=== PATIENT | female | born 1950 | race Two or more races ===

== ENCOUNTER 2023-07-26 09:01 | Outpatient (REF) | payer OTHER, SELFPAY ==
[2023-07-26 15:16] LABS: Cholesterol 218 mg/dL (<200); HDL Cholesterol 48 mg/dL (>40); LDL Cholesterol Calculated 146 mg/dL (<100); Triglycerides 123 mg/dL (<150)
[2023-07-26 16:57] LABS: Parathyroid Hormone Intact 165.5 pg/mL (8.7-77.1)
[2023-07-30 01:03] LABS: VITAMIN D (1,25 OH) D3 78 pg/mL; Vit D (1,25-Dihydroxy) Total 105 pg/mL (18-72); Vitamin D (1,25 OH) D2 27 pg/mL
== END 2023-07-26 09:02 | disposition home or self-care (01) ==
LOC: HO.CHCLDS 09:01
PROVIDERS: Visit Provider Family Medicine
DX: E78.5 Hyperlipidemia, unspecified (principal); E21.3 Hyperparathyroidism, unspecified
CPT/HCPCS: 36415; 80061; 82652; 83970

== ENCOUNTER 2023-11-15 08:33 | Outpatient (REF) | payer OTHER, SELFPAY ==
[2023-11-15 14:07] LABS: Cholesterol 237 mg/dL (<200); HDL Cholesterol 55 mg/dL (>40); LDL Cholesterol Calculated 162 mg/dL (<100); Triglycerides 100 mg/dL (<150)
== END 2023-11-15 08:34 | disposition home or self-care (01) ==
LOC: HO.CHCLDS 08:33
PROVIDERS: Visit Provider Family Medicine
DX: E78.5 Hyperlipidemia, unspecified (principal)
CPT/HCPCS: 36415; 80061

== ENCOUNTER 2024-06-29 08:37 | Outpatient (REF) | payer OTHER, SELFPAY ==
[2024-06-29 14:33] LABS: Cholesterol 233 mg/dL (<200); HDL Cholesterol 55 mg/dL (>40); LDL Cholesterol Calculated 154 mg/dL (<100); Triglycerides 122 mg/dL (<150)
== END 2024-06-29 08:38 | disposition home or self-care (01) ==
LOC: HO.CHCLDS 08:37
PROVIDERS: Visit Provider Family Medicine
DX: E78.5 Hyperlipidemia, unspecified (principal)
CPT/HCPCS: 36415; 80061

== ENCOUNTER 2025-02-13 08:25 | Outpatient (REF) | payer OTHER, SELFPAY ==
--- OUTSIDE RECORDS SUMMARY | 2025-02-13 08:29 | XMS_ITS | Continuity of Care Document ---
Author Organization [facility] [address] [place] [address] Phone [phone] Social History Type Date Description Comments Sex Female Sex Unknown Medical Devices Description No Information Available Encounters Description No Information Available Assessments Description No Information Available Plan of Treatment No Information Available Functional Status Description No Information Available Mental Status Description No Information Available Referrals Description No Information Available
--- OUTSIDE RECORDS SUMMARY | 2025-02-13 08:29 | XMS_ITS | Encounter Summary ---
Author Organization [employer] Address [address] [facility] 7t [place] [address] Care Team Providers Care Preschool Principal Name Role Phone Jocelin Harvey MD Primary Care Provider [phone] Reason for Visit * Reason Onset Date Comments Med Refill 11/03/2023 Encounter Details Date Type Department Care Team ([facility] st Contact Info) Description 11/03/2023 Telephone [facility] MEDICINE [address] [place] [address] Jocelin Harvey MD [address] [place] [address] Med Refill Social History Tobacco Use Types Packs/Day Years Used Date Smoking Tobacco: Never Passive Smoke Exposure: Never Smokeless Tobacco: Never Alcohol Use Standard Drinks/Week Comments Never 0 (1 standard drink = 0.6 oz pur e alcohol) Depression Answer Date Recorded Patient Health Questionnaire-9 Score 0 01/14/2023 Housing Stability Answer Date Recorded What is your housing situation today? I have kenna broderick 05/30/[address] you li ve. Do you have problems with any of the following? None of the above 05/30/2023 Food Insecurity Answer Date Recorded Within the past 12 months, y ou worried that your food would run out before you got money to buy more: Never True 05/30/2023 Within the past 12 months,th e food you bought just didn't last and you didn't have enough money to get more: Never True Transportation Answer Date Recorded In the past 12 months, has l ack of transportation kept you from medical appts, meetings, work or from getting things needed for daily living? No 05/30/2023 Utilities Answer Date Recorded In the past 12 months, has t he electric, gas, oil or water company threatened to shut off services in your home? No 05/30/2023 Depression Answer Date Recorded Patient Health Questionnaire-2 Score 0 01/14/2023 Comments Unknown Sex and Gender Information Value Date Recorded Sex Assigned at Female 06/14/2022 10:23 AM EDT Legal Sex Female 10:23 AM EDT Gender Identity Choose not to disclose 10:23 AM EDT Sexual Orientation Straight 09/03/2022 1: 46 PM EST documented as of this encounter Miscellaneous Notes * Telephone Encounter - Evan Abad - 11/03/2023 2:34 PM EDT TC from pt requesting medication refill. Medications needing refill : zolpidem (Ambien) 10 MG tablet To be sent to: [facility]/pharmacy #[id number] - [place], [place] - [address] [place], [place] [address]Mercedes [facility] [place] [facility] [facility]ITALCole documented in this encounter Plan of Treatment Upcoming Encounters Date Type Department Care Team (Late st Contact Info) Description 03/12/2025 11:00 AM EDT Clinical Support [facility] MED & PEDS [address] [place] [address] Kristyn Thomas, RN [address] [place] [address] documented as of this encounter Visit Diagnoses Not on filedocumented in this encounter Additional Health Concerns Assessment Noted Time PHQ-9 Depression Total Score: 0 01/15/20 2:08 PM EDT documented as of this encounter Care Teams Preschool Principal Relationship Specialty Start Date End Date Jocelin Harvey MD [address] [place] [address] PCP - General Family Medicine 08/27/22 documented as of this encounter
--- OUTSIDE RECORDS SUMMARY | 2025-02-13 08:29 | XMS_ITS | Clinical Summary ---
Author Organization [facility] Address [address] [place] [address] Care Team Providers Care Boat Buffer Plastic Name Role Phone Jocelin Harvey MD Primary Care Provider [phone] Surgical History Surgery Date Site/Laterality Comments HYSTERECTOMY PROCEDURE: HISTORICAL HYSTERECTOMY; COMMENT: has ovaries ROTATOR CUFF REPAIR Right PROCEDURE: HISTORICAL ROTATOR CUFF REPAIR HEMORRHOID SURGERY PROCEDURE: HISTORICAL HEMMORROIDECTOMY Medical History Medical History Date Comments Dyslipidemia DX:Dyslipidemia HTN (hypertension) DX:HTN (hyper tension) Seasonal allergies DX:Seasonal a llergies Migraine DX:Migraine 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 DX:Right knee DJ D Insomnia 07/03/2014 DX:Insomnia Lumbar spondylosis DX:Lumbar spo ndylosis Post herpetic neuralgia 10/28/2016 DX:Post herpetic neuralgia Leukopenia 03/11/2017 DX:Leukopenia Prediabetes 02/13/2019 DX:Prediabetes Serum calcium elevated DX:Serum calcium elevated Family History Medical History Relation Name Comments Coronary artery disease Father diab etes Breast cancer Maternal Grandmother Coronary artery disease Mother diab etes Relation Name Status Comments Father Maternal Grandmother Mother Social History Tobacco Use Types Packs/Day Years Used Date Smoking Tobacco: Never Smokeless Tobacco: Never Alcohol Use Standard Drinks/Week Comments No 0 (1 standard drink = 0.6 oz pur e alcohol) Comments Unknown Sex and Gender Information Value Date Recorded Sex Assigned at Not on file Legal Sex Female 1:12 AM EST Gender Identity Not on file Sexual Orientation Not on file Obstetrics History Last Filed Vital Signs Vital Sign Reading Time Taken Comments Blood Pressure 108/64 05/26/2022 10:05 AM EDT Pulse 60 05/26/2022 10:05 AM EDT Temperature - - Respiratory Rate - - Oxygen Saturation - - Inhaled Oxygen Concentration - - Weight 96.8 kg (213 lb 6.4 oz) 05/26/2022 10:05 AM EDT Height 154.9 cm (5' 1 ) 05/26/2022 10:05 AM EDT Body Mass Index 40.32 05/26/2022 10:05 AM EDT Plan of Treatment Health Maintenance Due Date Last Done Comments Zoster Vaccines (1 of 2) 1969 RSV Immunization Adult Patients (1 - Risk 60-74 years 1-dose series) 2010 Cholesterol Screening (Lipid Panel) 07/24/2022 Colorectal Cancer Screening: Colonoscopy 07/24/2022 Falls Risk Assessment 07/24/2022 Hepatitis C Screening 07/24/2022 Social Influencers of Health Screening 07/24/2022 Hypertension/CHF/CAD Annual BMP Blood Test 07/25/2022 Pneumococcal Vaccine: 50+ Years (2 of 2 - PCV) 09/28/2022 09/28/2021 Depression Screening 01/15/2024 01/14/2023 COVID-19 Vaccine ( season) 2024 08/03/2021, 11/05/2020, 10/08/2020 Influenza Vaccine (#1) 2025 , 07/29/2021, 05/14/2020, Additional history exists DTaP,Tdap,and Td Vaccines (2 - Td or Tdap) 07/16/2025 07/16/2015 Breast Cancer Screening 03/15/2026 03/15/20 24, 02/03/2023, 01/29/2022, Additional history exists Osteoporosis Screening (Bone Density Screening) 04/23/2037 04/23/2022, 08/31/2019 HIB Vaccines Aged Out No longer eligi ble based on patient's age to complete this topic HPV Vaccines Aged Out No longer eligi ble based on patient's age to complete this topic Hepatitis A Vaccines Aged Out No long er eligible based on patient's age to complete this topic Hepatitis B Vaccines Aged Out No long er eligible based on patient's age to complete this topic IPV Vaccines Aged Out No longer eligi ble based on patient's age to complete this topic MMR Vaccines Aged Out No longer eligi ble based on patient's age to complete this topic Meningococcal ACWY Vaccine Aged Out N o longer eligible based on patient's age to complete this topic Meningococcal B Vaccine Aged Out No l onger eligible based on patient's age to complete this topic RSV Immunization Patients Under 20 months Aged Out No longer eligible based on patient's age to complete this topic Varicella Vaccines Aged Out No longer eligible based on patient's age to complete this topic Procedures Procedure Name Priority Date/Time Associated Diagnosis Comments MARINA SCREENING DIGITAL Routine 03/15/2024 1:05 PM EDT Encounter for screening mammogram for malignant neoplasm of breast DXA BONE DENSITY STUDY 1+ SITS AXIAL SKEL Routine 04/23/2022 11:08 AM EDT Hyperparathyroidism, unspecified ([facility] V24) from Last 3 Months or Most Recently Relevant to Health Maintenance Results * MARINA SCREENING DIGITAL (03/15/2024 1:05 PM EDT) Anatomical Region Laterality Modality Mammography 03/15/2024 10:4 4 AM EDT Narrative 03/15/2024 1:05 PM EDT [facility] Diagnostic Imaging Department [address] [place] [address] Patient: ARUN LARSON /Age/Sex: 1950 - 74 - F Unit#: [id number] [facility]Ordering [facility] Ordering Physician: JOCELIN HARVEY MD Marina Screening Digital - 03/15/24 - 1157 Report Status:Signed EXAM: Marina Screening Digital EXAM DATE AND TIME: 03/15/2024 11:58 AM HISTORY: Screening. Family history of breast carcinoma (maternal grandmother). COMPARISON: 02/02/23, 01/29/22, 12/03/20 TECHNIQUE: Bilateral digital breast tomosynthesis was performed in the CC and MLO projections. Computer aided detection with Siftit 3D 3.1 was employed. TISSUE DENSITY: b. There are scattered areas of fibroglandular density. FINDINGS: No suspicious masses, grouped microcalcifications, or areas of architectural distortion are seen. Vascular calcification is present. The skin is unremarkable. IMPRESSION: Stable mammographic appearance of the breasts. No evidence of malignancy is seen. A negative mammogram in the presence of a clinically suspicious palpable abnormality does not preclude the possibility of malignancy or alter the indications for biopsy. BI-RADS: Category 2: Benign RECOMMENDATION(S): 1: Routine screening mammogram BILATERAL in 1 year. Dictating Physician: SUZI JONES MD Electronically Signed by: SUZI JONES MD Dic Date/Time: 03/15/24 1304 Sign date/Time: 03/15/24 1305 Procedure Note Suzi Jones MD - 05/30/2024 [facility] Diagnostic Imaging Department [address] [place] [address] Patient: MARY JO LARSONGAIL /Age/Sex: 1950 - 74 - F Unit#: [id number] Location/Status: [facility] CLI Mnemonic/Ordering Site: [facility] Ordering Physician: JOCELIN HARVEY MD [facility] Screening Digital - 03/15/24 - 1157 Report Status:Signed EXAM: [facility] Screening Digital EXAM DATE AND TIME: 03/15/2024 11:58 AM HISTORY: Screening. Family history of breast carcinoma (maternalgrandmother). COMPARISON: 02/02/23, 01/29/22, 12/03/20 TECHNIQUE: Bilateral digital breast tomosynthesis was performed in the CCand MLO projections. Computer aided detection with Siftit 3D 3.1was employed. TISSUE DENSITY: b. There are scattered areas of fibroglandular density. FINDINGS: No suspicious masses, grouped microcalcifications, or areas ofarchitectural distortion are seen. Vascular calcification is present. The skin is unremarkable. IMPRESSION: Stable mammographic appearance of the breasts. No evidence of malignancyis seen. A negative mammogram in the presence of a clinically suspicious palpable abnormality does not preclude the possibility of malignancy or alter the indications for biopsy. BI-RADS: Category 2: Benign RECOMMENDATION(S): 1: Routine screening mammogram BILATERAL in 1 year. Dictating Physician: SUZI JONES MD Electronically Signed by: SUZI JONES MD Dic Date/Time: 03/15/24 1304 Sign date/Time: 03/15/24 1305 us Jocelin Harvey MD IMG BI PROCEDURES Final Resul t * DXA BONE DENSITY STUDY 1+ SITS AXIAL SKEL (04/23/2022 11:08 AM EDT) Anatomical Region Laterality Modality Bone Densitometr y 02/12/2022 10:4 0 AM EDT Narrative 04/23/2022 12:44 PM EDT BONE DENSITY (DEXA) Lumbar Spine T-score is -0.7. (SD relative to 20-29 y/o adult) Z-score is 1.5. (SD relative to age matched peers) This is considered normal by WHO criteria. Left Hip T-score is -0.1. Z-score is 1.5. This is considered normal by WHO criteria. Left Forearm T score is -1.7. Z score is 0.6. This is considered osteopenia. IMPRESSION: This patient is considered to have osteopenia by WHO criteria. The [facility] Department of Internal Medicine recommends using National Osteoporosis Foundation (NOF) guidelines in treatment decisions related to osteoporosis. NOF guidelines suggest considering treatment for postmenopausal women and men aged 50 or older presenting with the following: History of hip or vertebral fracture. T-score = -2.5 (DXA) at the femoral neck, total hip, or spine, after appropriate evaluation to exclude secondary causes. Low bone mass (T-score between -1.0 and -2.5 at the femoral neck or spine) AND a 10-year probability of a hip fracture = 3% OR a 10-year probability of a major osteoporosis-related fracture = 20% based on the [place]-adapted WHO algorithm Please note that all treatment decisions require clinical judgment and consideration of individual patient factors, including patient preferences, co-morbidities, previous drug use, risk factors not captured in the FRAX model (e.g., frailty, falls, vitamin D deficiency, increased bone turnover, interval significant decline in bone density) and possible under- or over-estimation of fracture risk by FRAX. Optional alternative screening schedule based on ileana Millard., [facility] September 02, 2011 for patients with osteopenia (based on hip BMD T-score) is as follows: * advanced osteopenia (T scores -2.00 to -2.49), BMD testing every year * moderate osteopenia (T scores -1.50 to -1.99), BMD testing every 5 years mild osteopenia or normal BMD (T scores -1.50 and higher), BMD testing every 15 years Procedure Note Rebeka Hernandez MD - 08/03/2022 BONE DENSITY (DEXA) Lumbar Spine T-score is -0.7. (SD relative to 20-29 y/o adult) Z-score is 1.5. (SD relative to age matched peers) This is considered normal by WHO criteria. Left Hip T-score is -0.1. Z-score is 1.5. This is considered normal by WHO criteria. Left Forearm T score is -1.7. Z score is 0.6. This is considered osteopenia. IMPRESSION: This patient is considered to have osteopenia by WHO criteria. The [facility] Department of Internal Medicine recommendsusing National Osteoporosis Foundation (NOF) guidelines in treatment decisions related toosteoporosis. NOF guidelines suggest considering treatment for postmenopausal women and menaged 50 or older presenting with the following: History of hip or vertebral fracture. T-score = -2.5 (DXA) at the femoral neck, total hip, or spine, afterappropriate evaluation to exclude secondary causes. Low bone mass (T-score between -1.0 and -2.5 at the femoral neck or spine)AND a 10-year probability of a hip fracture = 3% OR a 10-year probability of a majorosteoporosis-related fracture = 20% based on the [place]-adapted WHO algorithm Please note that all treatment decisions require clinical judgment andconsideration of individual patient factors, including patient preferences, co- morbidities,previous drug use, risk factors not captured in the FRAX model (e.g., frailty, falls, vitaminD deficiency, increased bone turnover, interval significant decline in bone density) andpossible under- or over-estimation of fracture risk by FRAX. Optional alternative screening schedule based on zunilda Millard al., NEJMJanuary 2011 for patients with osteopenia (based on hip BMD T-score) is as follows: * advanced osteopenia (T scores -2.00 to -2.49), BMD testing every year * moderate osteopenia (T scores -1.50 to -1.99), BMD testing every 5years mild osteopenia or normal BMD (T scores -1.50 and higher), BMD testingevery 15 years [facility] IMG DXA PROCEDURES Final Re sult from Last 3 Months or Most Recently Relevant to Health Maintenance Care Teams Boat Buffer Plastic Relationship Specialty Start Date End Date Jocelin Harvey MD [address] [facility] [address] PCP - General 11/12/22
[2025-02-13 14:59] LABS: Hematocrit 36.3 % (37.0-47.0); Hemoglobin 11.9 g/dl (12.0-16.0); Imm Gran Abs Auto 0.00 X10*3/uL (0.00-0.03); Imm Gran Pct Auto 0.0 % (0.0-0.4); Lymphocytes Absolute Auto 1.4 X10*3/uL (1.2-4.9); MANUAL DIFF FLAG SCAN; Mean Corpuscular HGB Conc 32.8 g/dl (31.0-35.0); Mean Corpuscular Hemoglobin 29.2 pg (27.0-33.0); Mean Corpuscular Volume 89.2 fL (80.0-98.0); NRBC Abs Auto 0.000 X10*3/uL (0.0-0.012); NRBC Pct Auto 0.0 /100WBC (0.0-0.2); Platelet Count 233 X10*3/uL (160-400); Red Blood Count 4.07 X10*6/uL (4.20-5.50); SCAN SMEAR FLAG 1; White Blood Count 2.9 X10*3/uL (4.8-10.8)
[2025-02-13 15:04] LABS: Hemoglobin A1C 136.8731 umol/L; Total Hemoglobin (HGBA1C) 3207.9816 umol/L
[2025-02-13 15:22] LABS: Alanine Aminotransferase 21 U/L (0-31); Albumin Level 4.1 g/dL (3.5-5.0); Alkaline Phosphatase 117 U/L (39-117); Anion Gap 10 (12-20); Aspartate Amino Transferase 38 U/L (5-31); Blood Urea Nitrogen 16 mg/dL (9-16); Calcium 9.9 mg/dL (8.4-10.2); Carbon Dioxide 25 mmol/L (22-29); Chloride 106 mmol/L (96-108); Cholesterol 214 mg/dL (<200); Estimated Glomerular Filt Rate > 60; HDL Cholesterol 47 mg/dL (>40); Iron 74 mcg/dL (30-160); Percent Iron Saturation 24 % (15-50); Potassium 4.4 mmol/L (3.3-5.1); Sodium 137 mmol/L (135-145); Total Iron Binding Capacity 308 mcg/dL (228-428); Total Protein 7.3 g/dL (6.5-8.0); Triglycerides 125 mg/dL (<150); Unsaturated Iron Binding 234 ug/dL
[2025-02-13 15:33] LABS: Ferritin 17 ng/mL (10-250)
[2025-02-13 15:34] LABS: Parathyroid Hormone Intact 189.0 pg/mL (8.7-77.1)
[2025-02-14 08:34] LABS: ~HepC Num1 0.08 S/CO (0.00-0.79); ~Hepatitis C Antibody Nonreactive (Nonreactive)
== END 2025-02-13 08:26 | disposition home or self-care (01) ==
LOC: HO.CHCLDS 08:25
PROVIDERS: Visit Provider Family Medicine
DX: E66.01 Morbid (severe) obesity due to excess calories (principal); E21.3 Hyperparathyroidism, unspecified; D64.9 Anemia, unspecified; E78.5 Hyperlipidemia, unspecified; Z13.9 Encounter for screening, unspecified
CPT/HCPCS: 36415; 80053; 80061; 82728; 83036; 83540; 83970; 84443; 85025; 86803

== ENCOUNTER 2025-02-25 13:51 | Outpatient (REF) | payer OTHER, SELFPAY ==
--- NOTE | ~2025-02-25 | XR_ITS ---
EXAMINATION: XR SHOULDER, LEFT CLINICAL INFORMATION: 74 yo F with left shoulder pain, + yergason, + speed, send to [facility] COMPARISON: None available. TECHNIQUE: AP external rotation, Grashey, scapular Y, and axillary views of the left shoulder. FINDINGS: Normal alignment. No fracture. Mild degenerative changes at the acromioclavicular joint. The glenohumeral joint space is preserved. No abnormal soft tissue calcifications. XR/XR shoulder LT min 2V IMPRESSION: Mild degenerative changes at the acromioclavicular joint. Electronically signed by: Lenin Jerome MD 02/25/2025 02:29 PM EDT
--- OUTSIDE RECORDS SUMMARY | 2025-02-25 15:14 | XMS_ITS | Encounter Summary ---
Author Organization [employer] Address [address] [facility] 7t [place] [address] Care Team Providers Care Cigar Packer And Picker Name Role Phone Jocelin Harvey MD Primary Care Provider [phone] Reason for Visit * Reason Onset Date Comments Med Refill 11/03/2023 Encounter Details Date Type Department Care Team ([facility] st Contact Info) Description 11/03/2023 Telephone [facility] MEDICINE [address] [place] [address] Jocelin Harvey MD [address] [place] [id number] Med Refill Social History Tobacco Use Types [...] 10 MG tablet To be sent to: [facility]/pharmacy #[id number] - [place], [place] - [address] [place], [place] [address]Mercedes AT [place] OF [place] MARTABANNER MD [facility] CENTERCole documented in this encounter Plan of Treatment Upcoming Encounters Date Type Department Care Team (Late st Contact Info) Description 03/12/2025 11:00 AM EDT Clinical Support [facility] CHC MED & PEDS [address] [place] [address] Kristyn Thomas, RN [address] [place] [address] documented as of this encounter Visit Diagnoses Not on filedocumented in this encounter Additional Health Concerns Assessment Noted Time PHQ-9 Depression Total Score: 0 01/15/20 2:08 PM EDT documented as of this encounter Care Teams Cigar Packer And Picker Relationship Specialty Start Date End Date Jocelin Harvey MD [address] [place] [address] PCP - General Family Medicine 08/27/22 documented as of this encounter
--- OUTSIDE RECORDS SUMMARY | 2025-02-25 15:14 | XMS_ITS | Clinical Summary ---
Author Organization [facility] Address [address] [place] [address] Care Team Providers Care Field Marketing Coordinator Name Role Phone Jocelin Harvey MD Primary Care Provider [phone] Surgical History Surgery Date Site/Laterality Comments HYSTERECTOMY [...] Routine 04/23/2022 11:08 AM EDT Hyperparathyroidism, unspecified ([facility] V24) from Last 3 Months or Most Recently Relevant to Health Maintenance Results * MARINA SCREENING DIGITAL (03/15/2024 1:05 PM EDT) Anatomical Region Laterality Modality Mammography 03/15/2024 10:4 4 AM EDT Narrative 03/15/2024 1:05 PM EDT [facility] Diagnostic Imaging Department [address] [place] [address] Patient: ARUN LARSON /Age/Sex: 1950 - 74 - F Unit#: [id number] [facility]ing [facility] Ordering Physician: JOCELIN HARVEY MD Marina Screening Digital - 03/15/24 - 1157 Report Status:Signed EXAM: Marina Screening Digital EXAM DATE AND TIME: 03/15/2024 11:58 AM HISTORY: Screening. Family history of breast carcinoma (maternal grandmother). COMPARISON: 02/02/23, 01/29/22, 12/03/20 TECHNIQUE: Bilateral digital breast tomosynthesis was performed in the CC and MLO projections. Computer aided detection with Stitch 3D 3.1 was employed. TISSUE DENSITY: b. [...] Procedure Note Suzi Jones MD - 05/30/2024 [facility] Diagnostic Imaging Department [address] [place] [address] Patient: MARY JO LARSONGAIL /Age/Sex: 1950 - 74 - F Unit#: [id number] Location/Status: [facility] CLI Mnemonic/Ordering Site: [facility] Ordering Physician: JOCELIN HARVEY MD [facility] Screening Digital - 03/15/24 - 1157 Report Status:Signed EXAM: [facility] Screening Digital EXAM DATE AND TIME: 03/15/2024 11:58 AM HISTORY: Screening. Family history of breast carcinoma (maternalgrandmother). COMPARISON: 02/02/23, 01/29/22, 12/03/20 TECHNIQUE: Bilateral digital breast tomosynthesis was performed in the CCand MLO projections. Computer aided detection with Stitch 3D 3.1was employed. TISSUE DENSITY: b. There [...] to have osteopenia by WHO criteria. The [facility] Department of Internal Medicine recommends using National [...] alternative screening schedule based on ileana Millard., [facility] September 02, 2011 for patients with osteopenia [...] to have osteopenia by WHO criteria. The [facility] Department of Internal Medicine recommendsusing National Osteoporosis [...] Recently Relevant to Health Maintenance Care Teams Field Marketing Coordinator Relationship Specialty Start Date End Date Jocelin Harvey MD [address] [place] [address] PCP - General 11/12/22
--- OUTSIDE RECORDS SUMMARY | 2025-02-25 15:14 | XMS_ITS | Continuity of Care Document ---
Author Organization [facility] [address] [place] [address] Phone [phone] Social History Type Date Description Comments Sex Female Sex Unknown Medical Devices Description No Information Available Encounters Description No Information Available Assessments Description No Information Available Plan of Treatment No Information Available Functional Status Description No Information Available Mental Status Description No Information Available Referrals Description No Information Available
== END 2025-02-25 13:52 | disposition home or self-care (01) ==
LOC: HO.XRAY 13:51
PROVIDERS: PCP Family Medicine; Visit Provider Family Medicine
DX: M75.22 Bicipital tendinitis, left shoulder (principal); M25.512 Pain in left shoulder
CPT/HCPCS: 73030

== ENCOUNTER → 2025-02-25 14:01 | Outpatient (BNV) | payer OTHER, SELFPAY | PROVIDERS: PCP Family Medicine; Visit Provider Radiology Body Imaging | DX: M25.512 Pain in left shoulder (principal) | CPT/HCPCS: 73030 ==

== ENCOUNTER 2025-04-03 10:31 | Outpatient (AMB) | payer OTHER, SELFPAY ==
--- NOTE | 2025-04-03 10:34 | A.OFFVIS_ITS ---
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 Patient referred by PCP for bicep tendonitis of left shoulder. Per PCP note, complaints of pain and limited ROM. Patient reports pain in both shoulders with her left shoulder being the worse. States having strong pains in her shoulder. She attended physical therapy that had helped with her ROM however not with her pain. No numbness or tingling. Denies injury. History of right shoulder surgery at [facility]. 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 She states the pain started about 3 months ago. She states the pain is intermittent but can randomly get worse. She denies pain at night while sleeping. [facility] Surgical History (Updated 04/03/25 @ 11:13 by MARY Rolle) Hx of shoulder surgery Social History (Updated 04/03/25 @ 10:45 by MARY Rolle) Patient Tobacco Use Status: Never used Tobacco Current occupational status: unemployed Review of Systems Const All systems reviewed & are unremarkable except as noted in HPI and below Physical Exam Vital Signs: BMI result Body Mass Index 37.8 Const General: cooperative and no acute distress Orientation/consciousness: patient oriented x3 Resp Effort & Inspection: normal respiratory effort and able to speak in complete sentences Cardio Peripheral pulses: Peripheral pulses 2+ throughout Neuro General: patient oriented x3 Extrem Other: Left shoulder normal to inspection. Tenderness over the bicipital groove and along deltoid region of the shoulder. FF to 175, ER to 90, IR to S1. 5/5 RTC strength, negative sherwood, cross body abduction. NVI. Results Reviewed Results Reviewed: XR shoulder LT min 2V IMPRESSION: Mild degenerative changes at the acromioclavicular joint. Assessment & Plan Assessment & Plan (1) Left shoulder tendonitis: Code(s): M77.8 - Other enthesopathies, not elsewhere classified Category: Medical (2) Osteoarthritis of left acromioclavicular joint: Code(s): M19.012 - Primary osteoarthritis, left shoulder Category: Medical Plan We discussed options which include PT, NSAIDs and injections. She will defer on the injection today and proceed with PT and NSAIDs. If symptoms persist she will contact me for an injection, otherwise, prn. Orders: Orders PT Evaluation and Treatment 04/03/25 M19.012 - Primary osteoarthritis, left shoulder, M77.8 - Other enthesopathies, not elsewhere classified Coding Level of Care Code New Pt Level 3 (95414) Complex EM visit Add On G2211 Diagnoses Left shoulder tendonitis M77.8 Osteoarthritis of left acromioclavicular joint M19.012
[2025-04-03 11:12] VITALS: BMI 37.8
--- OUTSIDE RECORDS SUMMARY | 2025-04-03 11:48 | XMS_ITS | Continuity of Care Document ---
Author Organization [facility] [address] [place] [address] Phone [phone] Social History Type Date Description Comments Sex Female Sex Unknown Medical Devices Description No Information Available Encounters Description No Information Available Assessments Description No Information Available Plan of Treatment No Information Available Functional Status Description No Information Available Mental Status Description No Information Available Referrals Description No Information Available
--- OUTSIDE RECORDS SUMMARY | 2025-04-03 11:48 | XMS_ITS | Encounter Summary ---
Author Organization [employer] Address [address] [facility] [address] [place] [address] Care Team Providers Care Cloth Grader Name Role Phone Jocelin Harvey MD Primary Care Provider [phone] Reason for Visit * Reason Onset Date Comments Med Refill 11/03/2023 Encounter Details Date Type Department Care Team ([facility] st Contact Info) Description 11/03/2023 Telephone [facility] MED[facility] [address] [place] [address] Jocelin Harvey MD [address] [place] [id number] Med Refill Social History Tobacco Use Types [...] 10 MG tablet To be sent to: [facility]/pharmacy #[id number] - [place], [place] - [address] [place], [place] [address] [place] [facility] documented in this encounter Plan of Treatment Upcoming Encounters Date Type Department Care Team (Late st Contact Info) Description 04/11/2025 9:00 AM EDT Clinical Support [facility] [address] [place] [address] Kristyn Thomas, RN [address] [place] [address] documented as of this encounter Visit Diagnoses Not on filedocumented in this encounter Additional Health Concerns Assessment Noted Time PHQ-9 Depression Total Score: 0 01/15/20 2:08 PM EDT documented as of this encounter Care Teams Cloth Grader Relationship Specialty Start Date End Date Jocelin Harvey MD [address] [place] [address] PCP - General Family Medicine 08/27/22 documented as of this encounter
--- OUTSIDE RECORDS SUMMARY | 2025-04-03 11:48 | XMS_ITS | Clinical Summary ---
Author Organization [facility] Address [address] [place] [address] Care Team Providers Care Compensation Associate Name Role Phone Jocelin Harvey MD Primary Care Provider [phone] Surgical History Surgery Date Site/Laterality Comments HYSTERECTOMY [...] Done Comments Zoster Vaccines (1 of 2) 2000 Cholesterol Screening (Lipid Panel) 07/24/2022 Colorectal Cancer Screening: Colonoscopy 07/24/2022 Falls Risk Assessment 07/24/2022 Hepatitis C Screening 07/24/2022 Social Influencers of Health Screening 07/24/2022 Hypertension/CHF/CAD Annual BMP Blood Test 07/25/2022 Pneumococcal Vaccine: 50+ Years (2 of 2 - PCV) 09/28/2022 09/28/2021 COVID-19 Vaccine (4 - season) 2024 08/03/2021, 11/05/2020, 10/08/2020 Depression Screening 08/15/2024 RSV Immunization Adult Patients (1 - 1-dose 75+ series) 2025 Influenza Vaccine (#1) 2025 2, 07/29/2021, 05/14/2020, Additional history exists DTaP,Tdap,and Td Vaccines (2 - Td or Tdap) 07/16/2025 07/16/2015 Osteoporosis Screening (Bone Density Screening) 04/23/2037 04/23/2022, 08/31/2019 Breast Cancer Screening Discontinued 03/15/20 24, 02/03/2023, 01/29/2022, Additional history exists HIB Vaccines Aged Out No longer eligi [...] Routine 04/23/2022 11:08 AM EDT Hyperparathyroidism, unspecified ([facility] V24) from Last 3 Months or Most Recently Relevant to Health Maintenance Results * [facility] SCREENING DIGITAL (03/15/2024 1:05 PM EDT) Anatomical Region Laterality Modality Mammography 03/15/2024 10:4 4 AM EDT Narrative 03/15/2024 1:[address] [facility] Diagnostic Imaging Department [address] [place] [address] Patient: ARUN LARSON /Age/Sex: 1950 - 74 - F Unit#: [id number] Location/Status: [facility]/REG CLI Mnemonic/Ordering Site: [facility] Ordering Physician: JOCELIN HARVEY MD [facility] Screening Digital - 03/15/24 - 1157 Report Status:Signed EXAM: [facility] Screening Digital EXAM DATE AND TIME: 03/15/2024 11:58 AM HISTORY: Screening. Family history of breast carcinoma (maternal grandmother). COMPARISON: 02/02/23, 01/29/22, 12/03/20 TECHNIQUE: Bilateral digital breast tomosynthesis was performed in the CC and MLO projections. Computer aided detection with Iconfinder 3D 3.1 was employed. TISSUE DENSITY: b. [...] Note Suzi Jones MD - 05/30/[address] [facility] Diagnostic Imaging Department [address] [place] [id number] Patient: ARUN LARSON /Age/Sex: 1950 - 74 - F Unit#: [id number] Location/Status: [facility] Mnemonic/Ordering Site: [facility] Ordering Physician: JOCELIN HARVEY MD [facility] Screening Digital - 03/15/24 - 1157 Report Status:Signed EXAM: [facility] Screening Digital EXAM DATE AND TIME: 03/15/2024 11:58 AM HISTORY: Screening. Family history of breast carcinoma (maternalgrandmother). COMPARISON: 02/02/23, 01/29/22, 12/03/20 TECHNIQUE: Bilateral digital breast tomosynthesis was performed in the CCand MLO projections. Computer aided detection with Iconfinder 3D 3.1was employed. TISSUE DENSITY: b. There [...] to have osteopenia by WHO criteria. The [facility] Department of Internal Medicine recommends using National [...] alternative screening schedule based on ileana Millard., [facility] September 02, 2011 for patients with [...] to have osteopenia by WHO criteria. The [facility] Department of Internal Medicine recommendsusing National Osteoporosis [...] alternative screening schedule based on ileana Millard., [facility] for patients with osteopenia (based on hip BMD T-score) is as follows: * advanced osteopenia (T scores -2.00 to -2.49), BMD testing every year * moderate osteopenia (T scores -1.50 to -1.99), BMD testing every 5years mild osteopenia or normal BMD (T scores -1.50 and higher), BMD testingevery 15 years us [facility] READ IMG DXA PROCEDURES Final Re sult from Last 3 Months or Most Recently Relevant to Health Maintenance Care Teams Compensation Associate Relationship Specialty Start Date End Date Jocelin Harvey MD [address] [place] [address] PCP - General 11/12/22
== END 2025-04-03 11:50 | disposition home or self-care (01) ==
LOC: HO.HOS 10:32
PROVIDERS: Visit Provider Physician Assistant
DX: M77.8 Other enthesopathies, not elsewhere classified (principal); M19.012 Primary osteoarthritis, left shoulder
CPT/HCPCS: 99203; G2211

== ENCOUNTER → 2025-04-03 10:31 | Outpatient (BNVA) | payer OTHER, SELFPAY | PROVIDERS: Visit Provider Physician Assistant | DX: M19.012 Primary osteoarthritis, left shoulder (principal); M77.8 Other enthesopathies, not elsewhere classified | CPT/HCPCS: 99202 ==